=== PATIENT | female | born 1965 | race African-American/Black ===

== ENCOUNTER 2016-11-13 13:35 | Inpatient (IN) | payer OTHER ==
[2016-11-13 15:01] VITALS: BMI 27.3
--- NOTE | 2016-11-13 16:31 | HP ---
Admission ROS [facility] - [facility] Chief Complaint: I WANT TO GO TO REHAB Allergies/Adverse Reactions: Allergies Allergy/AdvReac Type Severity Reaction Status Date / Time Penicillins Allergy Severe Hives Verified 11/13/16 15:59 History of Present Illness: 51 YEARS OLD FEMALE WITH LONG HISTORY OF COCAINE DEPENDENCE HAS POSITIVE PPD, HIV, GERD, HYPERTENSION, ASTHMA IS ADMITTED TO REHAB Exam Limitations: No Limitations - Ebola screening Have you traveled outside of the country in the last 21 days: No Have you had contact with anyone from an Ebola affected area: No Have you been sick,other than usual withdrawal symptoms: No Do you have a fever: No - Review of Systems Constitutional: Weight Stable EENT: reports: Dental Problems (LOWER DENTURE MISSING) Respiratory: reports: No Symptoms reported Cardiac: reports: No Symptoms Reported GI: reports: Indigestion : reports: No Symptoms Reported Musculoskeletal: reports: No Symptoms Reported Integumentary: reports: Lesions (MULTIPLE FACE) Neuro: reports: No Symptoms reported Endocrine: reports: No Symptoms Reported Hematology: reports: No Symptoms Reported Psychiatric: reports: Judgement Intact, Mood/Affect Appropiate, Orientated x3 Other Systems: Reviewed and Negative Patient History - Patient Medical History Hx Anemia: No Hx Asthma: Yes Hx Chronic Obstructive Pulmonary Disease (COPD): Yes Hx Cancer: No Hx Cardiac Disorders: No Hx Congestive Heart Failure: No Hx Hypertension: Yes (pt is on meds.) Hx Hypercholesterolemia: No Hx Pacemaker: No HX Cerebrovascular Accident: No Hx Seizures: No Hx Dementia: No Hx Diabetes: No Hx Gastrointestinal Disorders: Yes Hx Liver Disease: No Hx Genitourinary Disorders: No Hx Sexually Transmitted Disorders: No Hx Renal Disease (ESRD): No Hx Thyroid Disease: No Hx Human Immunodeficiency Virus (HIV): Yes Hx Hepatitis C: Yes Hx Depression: No Hx Suicide Attempt: No (DENIES) Hx Bipolar Disorder: Yes Hx Schizophrenia: No - Patient Surgical History Past Surgical History: Yes Hx Neurologic Surgery: No Hx Cataract Extraction: No Hx Cardiac Surgery: No Hx Lung Surgery: No Hx Breast Surgery: No Hx Breast Biopsy: No Hx Abdominal Surgery: No Hx Appendectomy: No Hx Cholecystectomy: No Hx Genitourinary Surgery: No Hx Section: No Hx Orthopedic Surgery: No Hx Hysterectomy: No Other Surgical History: conization for abnormal pap smear in 2009 in [place] Anesthesia Reaction: No - PPD History Previous Implant?: Yes Documented Results: Positive w/o proof Implanted On Prior [facility] Admission?: No Date: 03/16/16 PPD to be Administered?: No - Reproductive History Patient is a Female of Child Bearing Age (11 -55 yrs old): Yes Last Menstrual Period: 11/13/12 Patient : No - Smoking Cessation Smoking history: Former smoker Have you smoked in the past 12 months: No Cigars Per Day: 0 Hx Chewing Tobacco Use: No Initiated information on smoking cessation: No - Substance & Tx. History Hx Alcohol Use: No Hx Substance Use: Yes Substance Use Type: Cocaine Hx Substance Use Treatment: No - Substances Abused Cocaine Route: Inhalation Frequency: 1-2 times per week Amount used: 20$ Age of first use: 32 Date of Last Use: 11/06/16 Family Disease History - Family Disease History Family Disease History: Heart Disease: Father, Mother Admission Physical Exam [facility] - Vital Signs Vital Signs: Vital Signs - 24 hr 11/13/16 14:59 Temperature 97.9 F Pulse Rate 87 Respiratory 18 Rate Blood Pressure 157/94 - Physical General Appearance: Yes: No Apparent Distress, Nourished, Appropriately Dressed HEENTM: Yes: Hearing grossly Normal, Normocephalic, Normal Voice, Thrush (UPPER LIP), Lessions (RIGHT AND LEFT CORNERS OF MOUTH) Respiratory: Yes: Chest Non-Tender, No Respiratory Distress, No Accessory Muscle Use, Wheezing, Hyperresonant Neck: Yes: Supple, Trachea in good position Breast: Yes: Breasts Symetrical Cardiology: Yes: Regular Rhythm, Regular Rate, S1, S2 Abdominal: Yes: Normal Bowel Sounds, Non Tender, Soft Genitourinary: Yes: Within Normal Limits Back: Yes: Normal Inspection Musculoskeletal: Yes: full range of Motion, Gait Steady Extremities: Yes: Normal Range of Motion, Non-Tender Neurological: Yes: Fully Oriented, Alert, Motor Strength 5/5, Normal Mood/Affect , Normal Response Integumentary: Yes: Warm Lymphatic: Yes: Within Normal Limits - Diagnostic (1) Asthma Current Visit: No Status: Chronic Qualifiers: Asthma severity: moderate persistent Asthma complication type: with status asthmaticus Qualified Code(s): J45.42 - Moderate persistent asthma with status asthmaticus (2) COPD (chronic obstructive pulmonary disease) Current Visit: Yes Status: Chronic Qualifiers: COPD type: emphysema Emphysema type: other Qualified Code(s): J43.8 - Other emphysema (3) Cocaine dependence without complication Current Visit: Yes Status: Acute (4) Essential hypertension Current Visit: Yes Status: Chronic (5) HIV (human immunodeficiency virus infection) Current Visit: Yes Status: Chronic Comment: NEW ANTIVIRUS TRIVICAY DUE TO NONE COMPLIANCE (6) Hepatitis C antibody test positive Current Visit: Yes Status: Resolved (7) GERD (gastroesophageal reflux disease) Current Visit: Yes Status: Chronic Qualifiers: Esophagitis presence: without esophagitis Qualified Code(s): K21.9 - Gastro-esophageal reflux disease without esophagitis (8) Positive PPD, treated Current Visit: Yes Status: Resolved Cleared for Admission [facility] - Detox or Rehab [facility] Level of Care: Observation Bed Detox Regimen/Protocol: Not Applicable Claeared for Rehab Admission: Yes [facility] Breath Alcohol Content Breath Alcohol Content: 0 Urine Pregancy Test - Result Urine Test Results: Negative- NO Line Present Urine Drug Screen - Results Drug Screen Negative: No Urine Drug Screen Results: PRO-Cocaine
[2016-11-13] MEDS ORDERED: ACETAMINOPHEN 325 MG TABLET (FP) PO PRN (16:40)
[2016-11-13] MEDS ORDERED: MAGNESIUM HYDROX 2400MG/30ML ORAL SUSPENSION 30 ML CUP PO PRN (16:40)
[2016-11-13] MEDS ORDERED: MAG HYDROX/AL HYDROX/SIMETH 30 ML UNIT-DOSE CUP PO PRN (16:40)
[2016-11-13] MEDS ORDERED: P-EPHED 60MG/TRIPROLIDI 2.5MG TABLET PO PRN (16:40)
[2016-11-13] MEDS ORDERED: LOPERAMIDE HCL 2 MG CAPSULE PO PRN (16:40)
[2016-11-13] MEDS ORDERED: MAGNESIUM CITRATE 300 ML BOTTLE PO PRN (16:40)
[2016-11-13] MEDS ORDERED: MENTHOL/PHENOL 1 EACH UD MM PRN (16:40)
[2016-11-13] MEDS ORDERED: guaiFENesin/D-METHORPHAN HB 10 ML UNIT-DOSE CUPS PO PRN (16:44)
[2016-11-13] MEDS: BUDESONIDE/FORMETEROL FUMARATE 80/4.5 mcg INHALER IH SCH (21:54)
[2016-11-13] MEDS: amLODIPine BESYLATE 10 MG TABLET (FP) PO SCH (21:54)
[2016-11-13] MEDS: CARVEDILOL 3.125 MG TABLET (FP) PO SCH (21:54)
[2016-11-13] MEDS: RANITIDINE HCL 150 MG TABLET (FP) PO SCH (21:55)
[2016-11-13] MEDS: NYSTATIN/TRIAMCINOLONE TOPICAL CREAM 15 GM TUBE TP SCH ×2 (21:55→22:32)
[2016-11-13] MEDS: CLOTRIMAZOLE 10 MG TROCHE (FP) MM SCH ×2 (21:55→22:32)
[2016-11-13] MEDS: MONTELUKAST NA 10 MG TABLET PO SCH (21:55)
[2016-11-13] MEDS: THIAMINE HCL 100 MG TABLET (FP) PO SCH (21:55)
[2016-11-13] MEDS: diphenhydrAMINE HCL 50 MG CAPSULE PO PRN (21:56)
[2016-11-13] MEDS ORDERED: PT OWN MED DRAWER 7, Y5N ONE (22:37)
[2016-11-13 23:11] LABS: URINE APPEARANCE CLEAR; URINE BILIRUBIN NEGATIVE (NEGATIVE); URINE BLOOD NEGATIVE (NEGATIVE); URINE COLOR STRAW; URINE GLUCOSE (UA) NEGATIVE (NEGATIVE); URINE KETONE NEGATIVE (NEGATIVE); URINE LEUK ESTERASE NEGATIVE (NEGATIVE); URINE NITRITE NEGATIVE (NEGATIVE); URINE PROTEIN NEGATIVE (NEGATIVE); URINE UROBILINOGEN NEGATIVE E.U./dl (0.2-1.0)
[2016-11-14] MEDS: CLOTRIMAZOLE 10 MG TROCHE (FP) MM SCH ×5 (06:19→21:45)
[2016-11-14] MEDS: NYSTATIN/TRIAMCINOLONE TOPICAL CREAM 15 GM TUBE TP SCH ×3 (06:19→21:44)
[2016-11-14] MEDS: ALBUTEROL SO4 6.7 GM HFA INHALER IH PRN ×2 (06:19→10:41)
[2016-11-14] MEDS ORDERED: PT OWN MED DRAWER 7, Y5N ONE ×3 (06:20→22:35)
[2016-11-14 10:06] LABS: MCH 28.8 pg (25.7-33.7); MCHC 33.3 g/dl (32.0-36.0); MEAN CELL VOLUME 86.3 fl (80-96); PLATELET COUNT 246 K/MM3 (134-434); RDW 14.2 % (11.6-15.6); WHITE BLOOD COUNT 4.4 K/mm3 (4.0-10.0)
[2016-11-14 10:20] LABS: ALK PHOS 73 U/L (45-117); ANION GAP 10 (8-16); BILIRUBIN,TOTAL 0.4 mg/dL (0.2-1.0); CALCIUM 8.7 mg/dL (8.5-10.1); CO2 29 mmol/L (21-32); COCKROFT - GAULT 97.4525; CREATININE 0.7 mg/dL (0.55-1.02); GLUCOSE,RANDOM 76 mg/dL (74-106); SGOT/AST 12 U/L (15-37); SGPT/ALT 17 U/L (12-78); TOT PROT 6.8 g/dl (6.4-8.2)
[2016-11-14] MEDS: ASPIRIN 81 MG CHEWABLE TABLETS PO SCH (10:35)
[2016-11-14] MEDS: CARVEDILOL 3.125 MG TABLET (FP) PO SCH (10:35)
[2016-11-14] MEDS: DAPSONE 100 MG TABLET PO SCH (10:35)
[2016-11-14] MEDS: DIVALPROEX SODIUM 250 MG TABLET E.C. (FP) PO SCH ×2 (10:35→21:43)
[2016-11-14] MEDS: amLODIPine BESYLATE 10 MG TABLET (FP) PO SCH (10:36)
[2016-11-14] MEDS: PRENATAL VITAMINS W/ FOLIC ACID TABLET (FP) PO SCH (10:36)
[2016-11-14] MEDS: RANITIDINE HCL 150 MG TABLET (FP) PO SCH ×2 (10:37→21:43)
[2016-11-14] MEDS: BUDESONIDE/FORMETEROL FUMARATE 80/4.5 mcg INHALER IH SCH ×2 (10:37→21:44)
[2016-11-14] MEDS: ALBUTEROL SO4 2.5/IPRATROPIUM 0.5 INH SOL 3 ML VIAL.NEB. NEB PRN (12:49)
[2016-11-14] MEDS ORDERED: FLUCONAZOLE 100 MG TABLET (UD) PO ONE (14:23)
[2016-11-14] MEDS: LIDOCAINE 5% TOPICAL PATCH TP SCH (14:43)
[2016-11-14] MEDS: POTASSIUM CHLORIDE TABS 20 MEQ TABLET.ER (FP) PO SCH ×2 (14:44→21:43)
[2016-11-14] MEDS: SULFAMETHOXAZOLE/TRIMETHOPRIM 800MG/160MG D.S. TABLET PO SCH (15:39)
[2016-11-14] MEDS: EMTRICITABINE 200MG/TENOFOVIR 300MG PO SCH (15:51)
--- NOTE | 2016-11-14 16:36 | EKG ---
Test Reason : Blood Pressure : / mmHG Vent. Rate : 085 BPM Atrial Rate : 085 BPM P-R Int : 146 ms QRS Dur : 086 ms QT Int : 408 ms P-R-T Axes : 065 046 032 degrees QTc Int : 485 ms NORMAL SINUS RHYTHM POSSIBLE LEFT ATRIAL ENLARGEMENT SEPTAL INFARCT (CITED ON OR BEFORE 03-FEB-2015) ABNORMAL ECG WHEN COMPARED WITH ECG OF 03-FEB-2015 15:48, NO SIGNIFICANT CHANGE WAS FOUND Confirmed by LULU DAVIS, EVA ([id number]) on 11/14/2016 4:36:41 PM Referred By: Suzanne Kramer Confirmed By:EVA LAWSON MD
[2016-11-14] MEDS: MONTELUKAST NA 10 MG TABLET PO SCH (21:43)
[2016-11-14] MEDS: THIAMINE HCL 100 MG TABLET (FP) PO SCH (21:43)
[2016-11-14] MEDS: QUEtiapine FUMARATE 100 MG TABLET (FP) PO SCH (21:45)
[2016-11-14] MEDS: LIDOCAINE PATCH REMOVAL MC SCH (21:46)
[2016-11-14] MEDS: RALTEGRAVIR POTASSIUM 400 MG TAB PO SCH (21:47)
[2016-11-15] MEDS: ALBUTEROL SO4 2.5/IPRATROPIUM 0.5 INH SOL 3 ML VIAL.NEB. NEB PRN ×2 (06:18→13:25)
[2016-11-15] MEDS ORDERED: PT OWN MED DRAWER 7, Y5N ONE ×3 (06:23→14:37)
[2016-11-15] MEDS: NYSTATIN/TRIAMCINOLONE TOPICAL CREAM 15 GM TUBE TP SCH ×3 (06:29→21:55)
[2016-11-15] MEDS: CLOTRIMAZOLE 10 MG TROCHE (FP) MM SCH ×5 (06:30→21:55)
--- NOTE | 2016-11-15 09:57 | HP ---
Psychiatrist Admission - Data Date of interview: 11/15/16 Admission source: [address] [place] [address] Identifying data: This is the second admission to [address] [place] [address] this 51 years old AA female single ,domiciled,supported by [employer]. Medical History: BA,COPD,HIV+,LOw back pain. Psychiatric History: Long and extensive psychiatric history.Patient wass dx with Bipolar disorder since 1992.Denies psychiatric hospitalizations,no previous suicidal attempts. Patient reports noncompliant with medications.Follow up by psychiatrist at [facility] :Depakote 250 mg po bid and Seroquel 100 mg po hs. Physical/Sexual Abuse/Trauma History: denies Vital Signs: Vital Signs - 24 hr 11/15/16 11/15/16 11/15/16 00:30 03:30 07:28 Temperature 98.1 F Pulse Rate 99 H Respiratory 18 18 18 Rate Blood Pressure 119/83 11/15/16 09:50 Temperature Pulse Rate 94 H Respiratory Rate Blood Pressure 126/81 Allergies/Adverse Reactions: Allergies Allergy/AdvReac Type Severity Reaction Status Date / Time Penicillins Allergy Severe Hives Verified 11/13/16 15:59 Date of last physical exam: 11/13/16 Concur with the findings of this exam: Yes - Substance Abuse/Tx History Hx Alcohol Use: Yes (reports drinking since 20 yo,fifth of vodka daily) Hx Substance Use: Yes (crack/coaine since 20 yo ,$300 daily) Substance Use Type: Alcohol, Cocaine Hx Substance Use Treatment: Yes (completed this program in 2016) - Admission Criteria Previous failed treatment: Yes Poor recovery environment: Yes Comorbidities: Yes Lacks judgement: Yes Mental Status Exam - Mental Status Exam Alert and Oriented to: Time, Place, Person Cognitive Function: Grossly Intact Patient Appearance: Well Groomed Mood: Anxious Affect: Labile Patient Behavior: Cooperative Speech Pattern: Clear Voice Loudness: Normal Thought Process: Goal Oriented Thought Disorder: Not Present Hallucinations: Denies Suicidal Ideation: Denies Homicidal Ideation: Denies Insight/Judgement: Fair Sleep: Fair Appetite: Good Muscle strength/Tone: Normal Gait/Station: Normal Psychiatric Findings - Problem List ([place] 1, 2,3) (1) Cocaine dependence without complication Current Visit: Yes Status: Chronic (2) COPD (chronic obstructive pulmonary disease) Current Visit: Yes Status: Chronic Qualifiers: COPD type: emphysema Emphysema type: other Qualified Code(s): J43.8 - Other emphysema (3) Essential hypertension Current Visit: Yes Status: Chronic (4) GERD (gastroesophageal reflux disease) Current Visit: Yes Status: Chronic Qualifiers: Esophagitis presence: without esophagitis Qualified Code(s): K21.9 - Gastro-esophageal reflux disease without esophagitis (5) HIV (human immunodeficiency virus infection) Current Visit: Yes Status: Chronic Comment: NEW ANTIVIRUS TRIVICAY DUE TO NONE COMPLIANCE (6) Hepatitis C antibody test positive Current Visit: Yes Status: Resolved (7) Hypertension Current Visit: Yes Status: Chronic (8) Asthma Current Visit: Yes Status: Chronic Qualifiers: Asthma severity: moderate persistent Asthma complication type: with status asthmaticus Qualified Code(s): J45.42 - Moderate persistent asthma with status asthmaticus - Initial Treatment Plan Initial Treatment Plan: Continue current medications as per plan.Will monitor progress.
[2016-11-15] MEDS: PRENATAL VITAMINS W/ FOLIC ACID TABLET (FP) PO SCH (10:40)
[2016-11-15] MEDS: CARVEDILOL 3.125 MG TABLET (FP) PO SCH (10:41)
[2016-11-15] MEDS: SULFAMETHOXAZOLE/TRIMETHOPRIM 800MG/160MG D.S. TABLET PO SCH (10:41)
[2016-11-15] MEDS: DAPSONE 100 MG TABLET PO SCH (10:41)
[2016-11-15] MEDS: ASPIRIN 81 MG CHEWABLE TABLETS PO SCH (10:41)
[2016-11-15] MEDS: FLUCONAZOLE 100 MG TABLET (UD) PO SCH (10:42)
[2016-11-15] MEDS: DIVALPROEX SODIUM 250 MG TABLET E.C. (FP) PO SCH ×2 (10:42→21:52)
[2016-11-15] MEDS: BUDESONIDE/FORMETEROL FUMARATE 80/4.5 mcg INHALER IH SCH ×2 (10:42→21:52)
[2016-11-15] MEDS: POTASSIUM CHLORIDE TABS 20 MEQ TABLET.ER (FP) PO SCH ×2 (10:42→21:52)
[2016-11-15] MEDS: amLODIPine BESYLATE 10 MG TABLET (FP) PO SCH (10:42)
[2016-11-15] MEDS: LIDOCAINE 5% TOPICAL PATCH TP SCH (10:42)
[2016-11-15] MEDS: RANITIDINE HCL 150 MG TABLET (FP) PO SCH ×2 (10:43→21:52)
[2016-11-15] MEDS: RALTEGRAVIR POTASSIUM 400 MG TAB PO SCH (10:44)
[2016-11-15] MEDS: RITONAVIR 100 MG TABLET PO SCH ×2 (10:47→14:19)
[2016-11-15] MEDS: EMTRICITABINE 200MG/TENOFOVIR 300MG PO SCH ×2 (10:47→14:19)
[2016-11-15] MEDS: ALBUTEROL SO4 6.7 GM HFA INHALER IH PRN ×3 (10:48→22:10)
[2016-11-15] MEDS: hydrOXYzine PAMOATE 50 MG CAPSULE (FP) PO PRN (13:27)
[2016-11-15] MEDS ORDERED: LIDOCAINE VISCOUS 2% ORAL/TOP 20 ML UNIT-DOSE CUP MM PRN (13:40)
[2016-11-15] MEDS: DARUNAVIR ETHANOLATE 800 MG TAB PO SCH (14:19)
[2016-11-15] MEDS: QUEtiapine FUMARATE 100 MG TABLET (FP) PO SCH (21:52)
[2016-11-15] MEDS: THIAMINE HCL 100 MG TABLET (FP) PO SCH (21:52)
[2016-11-15] MEDS: MONTELUKAST NA 10 MG TABLET PO SCH (21:52)
[2016-11-15] MEDS: LIDOCAINE PATCH REMOVAL MC SCH (21:53)
[2016-11-15] MEDS: diphenhydrAMINE HCL 50 MG CAPSULE PO PRN (21:58)
[2016-11-16] MEDS: NYSTATIN/TRIAMCINOLONE TOPICAL CREAM 15 GM TUBE TP SCH ×3 (06:29→22:04)
[2016-11-16] MEDS: CLOTRIMAZOLE 10 MG TROCHE (FP) MM SCH ×5 (06:30→22:07)
[2016-11-16] MEDS ORDERED: PT OWN MED DRAWER 7, Y5N ONE ×3 (06:30→20:41)
[2016-11-16] MEDS: ALBUTEROL SO4 6.7 GM HFA INHALER IH PRN (06:31)
[2016-11-16] MEDS: SULFAMETHOXAZOLE/TRIMETHOPRIM 800MG/160MG D.S. TABLET PO SCH (09:15)
[2016-11-16] MEDS: ASPIRIN 81 MG CHEWABLE TABLETS PO SCH (09:15)
[2016-11-16] MEDS: DIVALPROEX SODIUM 250 MG TABLET E.C. (FP) PO SCH ×2 (09:16→22:05)
[2016-11-16] MEDS: CARVEDILOL 3.125 MG TABLET (FP) PO SCH (09:16)
[2016-11-16] MEDS: DAPSONE 100 MG TABLET PO SCH (09:16)
[2016-11-16] MEDS: FLUCONAZOLE 100 MG TABLET (UD) PO SCH (09:17)
[2016-11-16] MEDS: POTASSIUM CHLORIDE TABS 20 MEQ TABLET.ER (FP) PO SCH ×2 (09:17→22:05)
[2016-11-16] MEDS: LIDOCAINE 5% TOPICAL PATCH TP SCH (09:17)
[2016-11-16] MEDS: amLODIPine BESYLATE 10 MG TABLET (FP) PO SCH (09:18)
[2016-11-16] MEDS: RITONAVIR 100 MG TABLET PO SCH (09:19)
[2016-11-16] MEDS: PRENATAL VITAMINS W/ FOLIC ACID TABLET (FP) PO SCH (09:19)
[2016-11-16] MEDS: BUDESONIDE/FORMETEROL FUMARATE 80/4.5 mcg INHALER IH SCH ×2 (09:19→22:04)
[2016-11-16] MEDS: DARUNAVIR ETHANOLATE 800 MG TAB PO SCH (09:19)
[2016-11-16] MEDS: EMTRICITABINE 200MG/TENOFOVIR 300MG PO SCH (09:20)
[2016-11-16] MEDS: RANITIDINE HCL 150 MG TABLET (FP) PO SCH ×2 (09:20→22:05)
[2016-11-16] MEDS: ALBUTEROL SO4 2.5/IPRATROPIUM 0.5 INH SOL 3 ML VIAL.NEB. NEB PRN ×2 (09:20→16:56)
[2016-11-16] MEDS: hydrOXYzine PAMOATE 50 MG CAPSULE (FP) PO PRN ×2 (10:33→17:04)
[2016-11-16] MEDS: MONTELUKAST NA 10 MG TABLET PO SCH (22:05)
[2016-11-16] MEDS: QUEtiapine FUMARATE 100 MG TABLET (FP) PO SCH (22:05)
[2016-11-16] MEDS: THIAMINE HCL 100 MG TABLET (FP) PO SCH (22:05)
[2016-11-16] MEDS: diphenhydrAMINE HCL 50 MG CAPSULE PO PRN (22:06)
[2016-11-16] MEDS: LIDOCAINE PATCH REMOVAL MC SCH (22:07)
[2016-11-17] MEDS: CLOTRIMAZOLE 10 MG TROCHE (FP) MM SCH ×5 (06:31→21:50)
[2016-11-17] MEDS: NYSTATIN/TRIAMCINOLONE TOPICAL CREAM 15 GM TUBE TP SCH ×3 (06:31→21:48)
[2016-11-17] MEDS: ALBUTEROL SO4 6.7 GM HFA INHALER IH PRN ×2 (08:46→18:28)
[2016-11-17] MEDS: SULFAMETHOXAZOLE/TRIMETHOPRIM 800MG/160MG D.S. TABLET PO SCH (10:14)
[2016-11-17] MEDS: ASPIRIN 81 MG CHEWABLE TABLETS PO SCH (10:14)
[2016-11-17] MEDS: CARVEDILOL 3.125 MG TABLET (FP) PO SCH (10:14)
[2016-11-17] MEDS: DIVALPROEX SODIUM 250 MG TABLET E.C. (FP) PO SCH ×2 (10:15→21:48)
[2016-11-17] MEDS: DAPSONE 100 MG TABLET PO SCH (10:15)
[2016-11-17] MEDS: LIDOCAINE 5% TOPICAL PATCH TP SCH (10:16)
[2016-11-17] MEDS: POTASSIUM CHLORIDE TABS 20 MEQ TABLET.ER (FP) PO SCH ×2 (10:16→21:48)
[2016-11-17] MEDS: FLUCONAZOLE 100 MG TABLET (UD) PO SCH (10:16)
[2016-11-17] MEDS: amLODIPine BESYLATE 10 MG TABLET (FP) PO SCH (10:18)
[2016-11-17] MEDS: RITONAVIR 100 MG TABLET PO SCH (10:18)
[2016-11-17] MEDS: EMTRICITABINE 200MG/TENOFOVIR 300MG PO SCH (10:18)
[2016-11-17] MEDS: BUDESONIDE/FORMETEROL FUMARATE 80/4.5 mcg INHALER IH SCH ×2 (10:19→21:47)
[2016-11-17] MEDS: RANITIDINE HCL 150 MG TABLET (FP) PO SCH ×2 (10:19→21:49)
[2016-11-17] MEDS: DARUNAVIR ETHANOLATE 800 MG TAB PO SCH (10:19)
[2016-11-17] MEDS: PRENATAL VITAMINS W/ FOLIC ACID TABLET (FP) PO SCH (10:19)
[2016-11-17] MEDS: ALBUTEROL SO4 2.5/IPRATROPIUM 0.5 INH SOL 3 ML VIAL.NEB. NEB PRN (13:11)
[2016-11-17] MEDS: hydrOXYzine PAMOATE 50 MG CAPSULE (FP) PO PRN ×2 (13:11→18:27)
[2016-11-17] MEDS ORDERED: PT OWN MED DRAWER 7, Y5N ONE (18:27)
[2016-11-17] MEDS: diphenhydrAMINE HCL 50 MG CAPSULE PO PRN (21:48)
[2016-11-17] MEDS: THIAMINE HCL 100 MG TABLET (FP) PO SCH (21:49)
[2016-11-17] MEDS: MONTELUKAST NA 10 MG TABLET PO SCH (21:49)
[2016-11-17] MEDS: QUEtiapine FUMARATE 100 MG TABLET (FP) PO SCH (21:49)
[2016-11-17] MEDS: LIDOCAINE PATCH REMOVAL MC SCH (21:51)
[2016-11-18] MEDS ORDERED: PT OWN MED DRAWER 7, Y5N ONE ×2 (03:27→12:16)
[2016-11-18] MEDS: ALBUTEROL SO4 2.5/IPRATROPIUM 0.5 INH SOL 3 ML VIAL.NEB. NEB PRN (06:25)
[2016-11-18] MEDS: NYSTATIN/TRIAMCINOLONE TOPICAL CREAM 15 GM TUBE TP SCH ×3 (06:43→22:06)
[2016-11-18] MEDS: CLOTRIMAZOLE 10 MG TROCHE (FP) MM SCH ×5 (06:43→22:06)
[2016-11-18 07:07] VITALS: TEMP 97.5
[2016-11-18 10:01] VITALS: BP 116/76; PULSE 101
[2016-11-18] MEDS: RANITIDINE HCL 150 MG TABLET (FP) PO SCH ×2 (11:00→22:07)
[2016-11-18] MEDS: DARUNAVIR ETHANOLATE 800 MG TAB PO SCH (11:20)
[2016-11-18] MEDS: amLODIPine BESYLATE 10 MG TABLET (FP) PO SCH (11:20)
[2016-11-18] MEDS: PRENATAL VITAMINS W/ FOLIC ACID TABLET (FP) PO SCH (11:20)
[2016-11-18] MEDS: ASPIRIN 81 MG CHEWABLE TABLETS PO SCH (11:20)
[2016-11-18] MEDS: SULFAMETHOXAZOLE/TRIMETHOPRIM 800MG/160MG D.S. TABLET PO SCH (11:21)
[2016-11-18] MEDS: CARVEDILOL 3.125 MG TABLET (FP) PO SCH (11:21)
[2016-11-18] MEDS: DAPSONE 100 MG TABLET PO SCH (11:22)
[2016-11-18] MEDS: POTASSIUM CHLORIDE TABS 20 MEQ TABLET.ER (FP) PO SCH ×3 (11:23→22:06)
[2016-11-18] MEDS: EMTRICITABINE 200MG/TENOFOVIR 300MG PO SCH (11:24)
[2016-11-18] MEDS: RITONAVIR 100 MG TABLET PO SCH (11:24)
[2016-11-18] MEDS: BUDESONIDE/FORMETEROL FUMARATE 80/4.5 mcg INHALER IH SCH ×2 (11:25→22:07)
[2016-11-18] MEDS: DIVALPROEX SODIUM 250 MG TABLET E.C. (FP) PO SCH ×2 (11:27→22:05)
[2016-11-18] MEDS: FLUCONAZOLE 100 MG TABLET (UD) PO SCH (11:53)
[2016-11-18] MEDS: LIDOCAINE 5% TOPICAL PATCH TP SCH (11:53)
[2016-11-18] MEDS: ALBUTEROL SO4 6.7 GM HFA INHALER IH PRN (12:57)
[2016-11-18] MEDS ORDERED: ALBUTEROL SO4 2.5/IPRATROPIUM 0.5 INH SOL 3 ML VIAL.NEB. NEB PRN (13:56)
[2016-11-18] MEDS ORDERED: LEVOFLOXACIN 500 MG TABLET (FP) PO SCH (14:00)
--- NOTE | 2016-11-18 14:07 | PN ---
[facility] Progress Note Note: C/O sob & wheezing Last Vital Signs Temp Pulse Resp BP Pulse Ox 97.5 F L 101 H 18 116/76 11/18/16 07:06 11/18/16 10:00 11/18/16 07:06 11/18/16 10:00 Lungs : B/L expiratory wheezing, O2 sat 99% Dx. : Acute Asthma attack R/O superimposed Bronchitis P : Prednisone 60mg PO stat Duoned via nebulizer Levaquin 500mg daily
[2016-11-18] MEDS ORDERED: predniSONE 20 MG TABLET (UD) PO SCH (14:27)
[2016-11-18] MEDS: hydrOXYzine PAMOATE 50 MG CAPSULE (FP) PO PRN (15:13)
--- NOTE | 2016-11-18 18:15 | PN ---
S Progress Note Note: NURSE CALLED FOR PT C/O RESPIRATORY DISTRESS/SOB. HX OF ASTHMA/COPD AND INTUBATION X 3. PT REFUSED RESPIRATORY TX HERE PER NURSE STATING " I NEED TO GO TO THE ER NOW BECAUSE I KNOW MYSELF". WEK AND DIFFICULTY STANDING FROM SITTING POSITION. PT IS ABLE TO VERBALLY COMMUNICATE WITHOUT DIFFICULTY. NO LOC. LUNGS:DIMINISHED BREATH SOUNDS/ AIR MOVEMENT; TIGHT. PULSE OX 93% AND IMPROVED TO 97% T 97.5 P111 RR 22 BP 122/88 PLAN: TRANSFER PT VIA [facility] TO ER FOR RESPIRATORY MANAGEMENT.
[2016-11-18] MEDS ORDERED: SULFAMETHOXAZOLE/TRIMETHOPRIM 800MG/160MG D.S. TABLET PO SCH (22:00)
[2016-11-18] MEDS ORDERED: CYCLOBENZAPRINE HCL 10 MG TABLET (FP) PO SCH (22:00)
[2016-11-18] MEDS: ALBUTEROL SO4 2.5/IPRATROPIUM 0.5 INH SOL 3 ML VIAL.NEB. NEB SCH ×2 (22:04→22:05)
[2016-11-18] MEDS: LIDOCAINE PATCH REMOVAL MC SCH (22:06)
[2016-11-18] MEDS: QUEtiapine FUMARATE 100 MG TABLET (FP) PO SCH (22:07)
[2016-11-18] MEDS: THIAMINE HCL 100 MG TABLET (FP) PO SCH (22:07)
[2016-11-18] MEDS: MONTELUKAST NA 10 MG TABLET PO SCH (22:07)
== END 2016-11-19 06:00 | disposition short-term general hospital (02) | DRG 772 ==
LOC: YASAS 13:35 → Y3E 17:21
PROVIDERS: ADMIT Psychiatry & Neurology Psychiatry; ATTEND Psychiatry & Neurology Psychiatry
PROC: HZ42ZZZ Group Counseling for Substance Abuse Treatment, Cognitive-Behavioral (ICD-10-PCS; principal; 2016-11-19)
DX: F14.20 Cocaine dependence, uncomplicated (principal); I10 Essential (primary) hypertension; J45.20 Mild intermittent asthma, uncomplicated; J43.8 Other emphysema; K21.9 Gastro-esophageal reflux disease without esophagitis; R76.11 Nonspecific reaction to tuberculin skin test without active tuberculosis
CPT/HCPCS: 36415; 80053; 81003; 85027; 86593; 93005; 93010; 94640

== ENCOUNTER 2016-11-18 18:24 | Inpatient (IN) | payer OTHER ==
[2016-11-18] MEDS ORDERED: ALBUTEROL SO4 0.083% IH SOL 2.5 MG/3 ML VIAL.NEB. NEB ONE ×4 (18:39→23:50)
[2016-11-18] MEDS ORDERED: IPRATROPIUM BR 0.02% 0.5 MG/2.5 ML VIAL.NEB. NEB ONE (18:40)
[2016-11-18] MEDS ORDERED: ALBUTEROL SO4 2.5/IPRATROPIUM 0.5 INH SOL 3 ML VIAL.NEB. NEB ONE (18:45)
[2016-11-18] MEDS ORDERED: MAGNESIUM SULF 50% (8.12 MEQ/2 ML-1 GM VIAL) ONE ×2 (19:22→20:01)
[2016-11-18] MEDS ORDERED: methylPREDNISolone NA SUCC 125 MG/2 ML VIAL IVPB ONE (19:22)
[2016-11-18] MEDS ORDERED: methylPREDNISolone NA SUCC 125 MG/2 ML VIAL ONE (19:22)
[2016-11-18] MEDS ORDERED: MAGNESIUM SULF 50% (8.12 MEQ/2 ML-1 GM VIAL) IVPB ONE (19:22)
[2016-11-18] MEDS: ALBUTEROL SO4 0.083% IH SOL 2.5 MG/3 ML VIAL.NEB. NEB SCH ×4 (19:30→20:15)
[2016-11-18 20:16] LABS: MCHC 32.2 g/dl (32.0-36.0); MEAN CELL VOLUME 87.2 fl (80-96); MEAN PLT VOLUME 9.9 fl (7.5-11.1); PLATELET COUNT 171 K/MM3 (134-434); WHITE BLOOD COUNT 4.4 K/mm3 (4.0-10.0)
[2016-11-18 20:31] LABS: URINE APPEARANCE CLEAR; URINE BILIRUBIN NEGATIVE (NEGATIVE); URINE BLOOD NEGATIVE (NEGATIVE); URINE COLOR STRAW; URINE GLUCOSE (UA) NEGATIVE (NEGATIVE); URINE KETONE NEGATIVE (NEGATIVE); URINE LEUK ESTERASE NEGATIVE (NEGATIVE); URINE NITRITE NEGATIVE (NEGATIVE); URINE PROTEIN NEGATIVE (NEGATIVE); URINE UROBILINOGEN NEGATIVE E.U./dl (0.2-1.0)
[2016-11-18 21:04] LABS: ARTERIAL BLD GAS O2 SATURATION 98.6 % (90-98.9); ARTERIAL BLOOD GAS BASE EXCESS -0.8 meq/l (-2-2); ARTERIAL BLOOD GAS HCO3 22.1 meq/L (22-26)
[2016-11-18 21:09] LABS: ALLENS TEST POSITIVE; ART PUNCT SITE RIGHT RADIAL; PT. ON O2? YES
--- NOTE | 2016-11-18 21:09 | PDOC ---
*Physical Exam - Vital Signs Last Vital Signs Temp Pulse Resp BP Pulse Ox 98.6 F 97 H 18 116/87 98 11/18/16 18:36 11/18/16 18:36 11/18/16 18:36 11/18/16 18:36 11/18/16 18:36 ED Treatment Course - LABORATORY CBC & Chemistry Diagram: 11/19/16 07:45 11/18/16 20:46 - ADDITIONAL ORDERS Additional order review: Laboratory Results 11/18/16 11/18/16 20:13 19:40 Sodium Cancelled Potassium Cancelled Chloride Cancelled Carbon Dioxide Cancelled Anion Gap Cancelled BUN Cancelled Creatinine Cancelled Creat Clearance w eGFR Cancelled Random Glucose Cancelled Calcium Cancelled Total Bilirubin Cancelled AST Cancelled ALT Cancelled Alkaline Phosphatase Cancelled Creatine Kinase Cancelled Troponin I Cancelled Total Protein Cancelled Albumin Cancelled Urine Color Straw Urine Appearance Clear Urine pH 8.0 Urine Protein Negative Urine Glucose (UA) Negative Urine Ketones Negative Urine Blood Negative Urine Nitrite Negative Urine Bilirubin Negative Urine Urobilinogen Negative Ur Leukocyte Esterase Negative - Medications Given in the ED: ED Medications Discontinued Medications Generic Name Dose Route Start Last Admin Trade Name Syeda PRN Reason Stop Dose Admin Magnesium Sulfate 2 gm 11/18/16 19:22 11/18/16 19:22 Magnesium Sulfate IVPB 11/18/16 19:23 2 gm ONCE ONE Administration Methylprednisolone Sodium Succinate 125 mg 11/18/16 19:22 11/18/16 19:22 Solu-Medrol - IVPB 11/18/16 19:23 125 mg ONCE ONE Administration Medical Decision Making - Medical Decision Making 11/18/16 21:09 Pt seen by the Advanced Practice Provider under my direct supervision Ancillary studies reviewed I agree with plan as outlined by the Advanced Practice Provider DUNCAN Pink *DC/Admit/Observation/Transfer Diagnosis at time of Disposition: Pneumonia, Hypoxia, HIV (human immunodeficiency virus infection) - Discharge Dispostion Disposition: HOME Condition at time of disposition: Improved - Prescriptions
[2016-11-18 21:10] LABS: LPM/O2% 2; TYPE OF O2 NASAL CANNULA
[2016-11-18 21:11] LABS: METHEMOGLOBIN 3.6 % (0.4-1.5)
[2016-11-18 21:12] LABS: ARTERIAL BLOOD GAS pH 7.45 (7.35-7.45)
[2016-11-18 21:40] LABS: ALBUMIN 3.3 g/dl (3.4-5.0); ANION GAP 11 (8-16); BILIRUBIN,TOTAL 0.3 mg/dL (0.2-1.0); CO2 24 mmol/L (21-32); COCKROFT - GAULT 75.7945; CREATININE 0.9 mg/dL (0.55-1.02); GLUCOSE,RANDOM 120 mg/dL (74-106); SGOT/AST 13 U/L (15-37); SGPT/ALT 18 U/L (12-78); TOT PROT 7.6 g/dl (6.4-8.2)
[2016-11-18 21:43] LABS: ALK PHOS 82 U/L (45-117); TROPONIN I < 0.02 ng/ml (0.00-0.05)
[2016-11-18 22:02] LABS: METAMYELOCYTE 4 % (0-2); PLATELET ESTIMATE ADEQUATE (NORMAL)
--- NOTE | 2016-11-18 22:06 | PDOC ---
History of Present Illness - General Chief Complaint: Asthma Stated Complaint: ASTHMA Time Seen by Provider: 11/18/16 19:11 History Source: Patient Exam Limitations: No Limitations - History of Present Illness Initial Comments: 11/18/16 22:01 51yo Female patient w/ PmHx: HIV+, COPD, Asthma, Respiratory failure w/ intubation x3 presents to ED via EMS c/o diff breathing. Patient states her symptoms began 2 days ago and progressively got worse. She states she recently moved from [facility], [place], but prior to moving had been dx: Pneumonia. rx: Levaquin x 3 days w/ prednisone. She states she was at [address] [place] [address] and transferred to this ED for evaluation. PCP- Out of Area. Timing/Duration: reports: getting worse, week Severity: reports: severe Possible Cause: Yes: other (Recent Illness) Modifying Factors: improves with: albuterol inhaler, albuterol nebulizer, antibiotics, rest Associated Symptoms: reports: shortness of breath, wheezing Past History - Travel Traveled outside of the country in the last 30 days: No Close contact w/someone who was outside of country & ill: No - Past Medical History Allergies/Adverse Reactions: Allergies Allergy/AdvReac Type Severity Reaction Status Date / Time Penicillins Allergy Severe Hives Verified 11/18/16 18:41 Home Medications: Ambulatory Orders Albuterol Sulfate Inhaler - [Ventolin HFA Inhaler -] 2 inh PO Q4H 02/01/15 Zolpidem Tartrate [Ambien] 10 mg PO HS 02/01/15 Fluticasone/Salmeterol [Advair 250-50 Diskus] 1 each IH BID 10/02/15 Amlodipine Besylate [Norvasc -] 10 mg PO DAILY #30 tablet 10/06/15 Aspirin [Viking Aspirin] 81 mg PO DAILY #30 tab.chew 10/06/15 Carvedilol [Coreg -] 3.125 mg PO DAILY #30 tablet 10/06/15 Lisinopril [Prinivil] 20 mg PO DAILY #30 tablet 10/06/15 Dapsone - 100 mg PO DAILY 11/13/16 Divalproex Sodium [Depakote] 250 mg PO BID 11/13/16 Dolutegravir Sodium [Tivicay] 50 mg PO DAILY 11/13/16 Guaifenesin [Liquituss GG] 200 mg PO Q6H PRN 11/13/16 Montelukast Na [Singulair -] 10 mg PO DAILY 11/13/16 Multivitamin [Poly-Vitamin] 1 each PO DAILY 11/13/16 Nystatin/Triamcin [Nystatin-Triamcinolone Cream] 15 gm TP TID 11/13/16 Omeprazole 20 mg PO DAILY 11/13/16 Oxycodone HCl/Acetaminophen [Oxycodone-Acetaminophen 10-325] 1 each PO BID 11/13 Quetiapine Fumarate [Seroquel] 100 mg PO HS 11/13/16 Tiotropium [place] [Spiriva Respimat] 2.5 mcg IH DAILY 11/13/16 Anemia: No Asthma: Yes (intubated 3X) Cancer: No Cardiac Disorders: No CVA: No COPD: No CHF: No Dementia: No Diabetes: No GI Disorders: No Disorders: No HTN: Yes Hypercholesterolemia: No Kidney Stones: No Liver Disease: No Suicide Attempt (Hx): No Seizures: No Thyroid Disease: No - Surgical History Abdominal Surgery: No Appendectomy: No Cardiac Surgery: No Cholecystectomy: No Lung Surgery: No Neurologic Surgery: No Orthopedic Surgery: No - Reproductive History PID: No - Immunization History Immunization Up to Date: Yes - Psycho/Social/Smoking Cessation Hx Anxiety: No Suicidal Ideation: No Smoking History: Unknown if ever smoked Have you smoked in the past 12 months: No Number of Cigarettes Smoked Daily: 3 Cigars Per Day: 0 Information on smoking cessation initiated: No 'Breaking Loose' booklet given: 04/03/16 Hx Alcohol Use: Yes Drug/Substance Use Hx: Yes (cocaine) Substance Use Type: Alcohol, Cocaine Hx Substance Use Treatment: Yes (completed this program in 2016) Respiratory Specific PMHX - Complaint Specific PMHX TB (Tuberculosis): Yes (+PPD) Review of Systems - Review of Systems Able to Perform ROS?: Yes Is the patient limited [place] proficient: No Constitutional: Yes: Chills. No: Fever, Night Sweats HEENTM: No: Nose Congestion, Nose Bleeding, Throat Pain Respiratory: Yes: Cough, Orthopnea, Shortness of Breath, Wheezing, Productive cough. No: Hemoptysis Cardiac (ROS): No: Chest Pain, Lightheadedness, Palpitations, Syncope, Chest Tightness ABD/GI: No: Constipated, Diarrhea, Nausea, Poor Appetite, Poor Fluid Intake, Vomiting, Abdominal cramping : No: Burning, Dysuria, Flank Pain Musculoskeletal: Yes: Back Pain (Chronic) Integumentary: No: Bruising, Rash All Other Systems: Reviewed and Negative *Physical Exam - Vital Signs Last Vital Signs Temp Pulse Resp BP Pulse Ox 98.6 F 97 H 18 116/87 98 11/18/16 18:36 11/18/16 18:36 11/18/16 18:36 11/18/16 18:36 11/18/16 18:36 - Physical Exam General Appearance: Yes: Nourished, Appropriately Dressed, Apparent Distress, Severe Distress. No: Mild Distress, Moderate Distress Neck: positive: Trachea midline, Supple. negative: Stridor, Lymphadenopathy (R) , Lymphadenopathy (L) Respiratory/Chest: positive: Labored Respiration, Decreased Breath Sounds, Wheezing Cardiovascular: positive: Regular Rhythm, Regular Rate Gastrointestinal/Abdominal: positive: Normal Bowel Sounds, Soft. negative: Distended, Guarding, Rebound, Tenderness Musculoskeletal: positive: Normal Inspection. negative: CVA Tenderness Extremity: positive: Normal Capillary Refill, Normal Inspection, Normal Range of Motion. negative: Pedal Edema, Swelling, Calf Tenderness, Erythema, Inflammation Integumentary: positive: Normal Color, Dry, Warm. negative: Erythema, Clammy, Diaphoresis, Hives, Petechiae, Swelling Neurologic: positive: traffic reporter II-XII NML intact, Fully Oriented, Alert, Normal Mood/ Affect, Normal Response, Motor Strength 5/5 ED Treatment Course - LABORATORY CBC & Chemistry Diagram: 11/18/16 19:40 11/18/16 20:46 - ADDITIONAL ORDERS Additional order review: Laboratory Results 11/18/16 11/18/16 11/18/16 21:00 20:46 20:13 Puncture Site Right radial ABG pH 7.45 ABG pCO2 at Pt Temp 32.3 L ABG pO2 at Pt Temp 120.0 H D ABG HCO3 22.1 ABG O2 Sat (Measured) 98.6 ABG O2 Content 14.4 L ABG Base Excess -0.8 [place]lin Test Positive Carboxyhemoglobin 1.2 Methemoglobin 3.6 H O2 Delivery Device Nasal cannula Oxygen Flow Rate 2 Mechanical Rate Na PEEP 0.0 Sodium 142 Potassium 4.6 D Chloride 107 Carbon Dioxide 24 Anion Gap 11 BUN 18 D Creatinine 0.9 D Creat Clearance w eGFR > 60 Random Glucose 120 H D Calcium 9.0 Total Bilirubin 0.3 D AST 13 L ALT 18 Alkaline Phosphatase 82 Creatine Kinase 48 Troponin I < 0.02 Total Protein 7.6 Albumin 3.3 L Urine Color Straw Urine Appearance Clear Urine pH 8.0 Urine Protein Negative Urine Glucose (UA) Negative Urine Ketones Negative Urine Blood Negative Urine Nitrite Negative Urine Bilirubin Negative Urine Urobilinogen Negative Ur Leukocyte Esterase Negative 11/18/16 19:40 Puncture Site ABG pH ABG pCO2 at Pt Temp ABG pO2 at Pt Temp ABG HCO3 ABG O2 Sat (Measured) ABG O2 Content ABG Base Excess Collin Test Carboxyhemoglobin Methemoglobin O2 Delivery Device Oxygen Flow Rate Mechanical Rate PEEP Sodium Cancelled Potassium Cancelled Chloride Cancelled Carbon Dioxide Cancelled Anion Gap Cancelled BUN Cancelled Creatinine Cancelled Creat Clearance w eGFR Cancelled Random Glucose Cancelled Calcium Cancelled Total Bilirubin Cancelled AST Cancelled ALT Cancelled Alkaline Phosphatase Cancelled Creatine Kinase Cancelled Troponin I Cancelled Total Protein Cancelled Albumin Cancelled Urine Color Urine Appearance Urine pH Urine Protein Urine Glucose (UA) Urine Ketones Urine Blood Urine Nitrite Urine Bilirubin Urine Urobilinogen Ur Leukocyte Esterase 11/18/16 19:40 RBC 3.78 MCV 87.2 MCHC 32.2 RDW 15.0 MPV 9.9 Neutrophils % Y Lymphocytes % Y - RADIOLOGY Radiology Studies Ordered: Category Date Time Status CHEST X-RAY PORTABLE* [RAD] Stat Radiology 11/18/16 19:22 Ordered - Medications Given in the ED: ED Medications Discontinued Medications Generic Name Dose Route Start Last Admin Trade Name Freq PRN Reason Stop Dose Admin Magnesium Sulfate 2 gm 11/18/16 19:22 11/18/16 19:22 Magnesium Sulfate IVPB 11/18/16 19:23 2 gm ONCE ONE Administration Methylprednisolone Sodium Succinate 125 mg 11/18/16 19:22 11/18/16 19:22 Solu-Medrol - IVPB 11/18/16 19:23 125 mg ONCE ONE Administration *DC/Admit/Observation/Transfer Diagnosis at time of Disposition: Hypoxia, HIV (human immunodeficiency virus infection) Pneumonia Qualifiers: Pneumonia type: due to unspecified organism Laterality: left Lung location: upper lobe of lung Qualified Code(s): J18.1 - Lobar pneumonia, unspecified organism - Discharge Dispostion Condition at time of disposition: Fair Admit: Yes
[2016-11-18] MEDS ORDERED: OXYCODONE/APAP 5/325MG COMBO TABLET PO ONE (22:40)
[2016-11-18] MEDS ORDERED: OXYCODONE/APAP 5/325MG COMBO TABLET ONE (22:56)
[2016-11-19] MEDS ORDERED: AZITHROMYCIN IVPB 500 MG in DEXTROSE 5%-WATER - 250 ML IVPB ONE (01:11)
[2016-11-19] MEDS ORDERED: CEFTRIAXONE 2 GM in DEXTROSE 5%-WATER - 100 ML IVPB ONE (01:11)
--- NOTE | 2016-11-19 01:44 | PN ---
<Carlito Durantjeff - Last Filed: 11/19/16 01:44> Teaching Attending Note Name of Resident: Sharyn King ATTENDING PHYSICIAN STATEMENT I saw and evaluated the patient. I reviewed the resident's note and discussed the case with the resident. I agree with the resident's findings and plan as documented. SUBJECTIVE: OBJECTIVE: ASSESSMENT AND PLAN: <Travis Mejia - Last Filed: 11/19/16 03:09> Teaching Attending Note ATTENDING PHYSICIAN STATEMENT I saw and evaluated the patient. I reviewed the resident's note and discussed the case with the resident. I agree with the resident's findings and plan as documented. SUBJECTIVE: The patient is a 51 year old female patient with a significant past medical history of HIV, COPD, Asthma, Respiratory failure (with intubations) who presented to Emergency department BIB from [address] [place] [address] complaining of shortness of breath. The patient noted recent diagnosis of pneumonia and reported completing a cycle of Levaquin with Prednisone. OBJECTIVE: Last Vital Signs 3 Temp Pulse Resp BP Pulse Ox 98.6 F 100 H 18 116/87 98 11/18/16 18:36 11/18/16 19:41 11/18/16 18:36 11/18/16 18:36 11/18/16 19:41 Physical Exam: GEN: NAD HEENT: NCAT, PERRL CARD: RRR, S1 S2 RESP: (+) diminished breath sound, minor diffuse rhonchi, expiratory wheezing ABD: (+) NT, BWS x4. Mild abdominal distention EXT: - CCE Labs: CBCD 3 WBC 4.4 K/mm3 (4.0-10.0) 11/18/16 19:40 RBC 3.78 M/mm3 (3.60-5.2) 11/18/16 19:40 Hgb 10.6 GM/dL (10.7-15.3) L 11/18/16 19:40 Hct 33.0 % (32.4-45.2) 11/18/16 19:40 MCV 87.2 fl (80-96) 11/18/16 19:40 MCHC 32.2 g/dl (32.0-36.0) 11/18/16 19:40 RDW 15.0 % (11.6-15.6) 11/18/16 19:40 Plt Count 171 K/MM3 (134-434) D 11/18/16 19:40 MPV 9.9 fl (7.5-11.1) 11/18/16 19:40 CMP 3 Sodium 142 mmol/L (136-145) 11/18/16 20:46 Potassium 4.6 mmol/L (3.5-5.1) D 11/18/16 20:46 Chloride 107 mmol/L (98-107) 11/18/16 20:46 Carbon Dioxide 24 mmol/L (21-32) 11/18/16 20:46 Anion Gap 11 (8-16) 11/18/16 20:46 BUN 18 mg/dL (7-18) D 11/18/16 20:46 Creatinine 0.9 mg/dL (0.55-1.02) D 11/18/16 20:46 Creat Clearance w eGFR > 60 (>60) 11/18/16 20:46 Calcium 9.0 mg/dL (8.5-10.1) 11/18/16 20:46 Total Bilirubin 0.3 mg/dL (0.2-1.0) D 11/18/16 20:46 AST 13 U/L (15-37) L 11/18/16 20:46 ALT 18 U/L (12-78) 11/18/16 20:46 Alkaline Phosphatase 82 U/L (45-117) 11/18/16 20:46 Total Protein 7.6 g/dl (6.4-8.2) 11/18/16 20:46 Albumin 3.3 g/dl (3.4-5.0) L 11/18/16 20:46 Imaging: EXAM: CHEST X-RAY PORTABLE Difficulty breathing Portable chest x-ray AP sitting. Since prior chest x-ray dated 04/09/2016, there are mild bibasilar atelectatic changes. The heart remains within normal limits in size. Mediastinum and visualized osseous structures appear intact Impression Mild bibasal atelectatic changes without definite infiltrates. Follow -up is needed. Reported By: Juany Pleitez MD 11/18/16 [id number] EXAM: CT chest without contrast IMAGES: 376 DATE OF SERVICE: 2016-11-19 00:27: 13.0 REASON FOR EXAM: Difficulty breathing, rule out pneumonia COMPARISON: FINDINGS: There is a small region of airspace atelectasis/consolidation noted in the lingular segment of left upper lobe. There are regions of subsegmental discoid atelectasis noted in both lower lobes. 5 mm nodule is noted in the right upper lobe. There is no pneumothorax. There are no pleural effusions. The heart size is normal. There is no pericardial effusion. THIS DOCUMENT HAS BEEN ELECTRONICALLY SIGNED Vishnu Arango MD ASSESSMENT AND PLAN: Patient is a 51 year old female with a past medical history of HIV+, COPD, Asthma, Respiratory failure (with intubations) who presented to the Emergency Department via EMS for shortness of breath. 1. Acute exacerbation of asthma - s/p magnesium and Solumedrol ED - Continue with nebulizers PRN and standing - Check peak expiratory flow 2. Pneumonia- community acquired. Most likey resolved as patient has no fever and no leukocytosis will hold off on antibiotics for now. - Urine analysis - Culture 3. COPD - Continue with nebulizers (Advair, Singulair, and Spiriva) 4. HIV - Check CD4 - Continue heart medications - Continue home medications - Continue PCP PPX - Continue Dapsone 5. HTN - Continue home medications - If shortness of breath improves can continue with coreg 6. Xanthomas -Check lipid panel 7. Cocaine dependence - Dr. Acosta consult 8. Bipolar - Continue with depakote 9. DVT- low risk - Ambulate Admit to med surg. Documentation prepared by Travis Mejia, acting as medical staff director for Dr. Berry Durant MD.
[2016-11-19] MEDS ORDERED: ALBUTEROL SO4 0.083% IH SOL 2.5 MG/3 ML VIAL.NEB. NEB PRN (02:12)
[2016-11-19] MEDS ORDERED: CEFTRIAXONE 100 ML IVPB ONE (02:20)
[2016-11-19] MEDS ORDERED: AZITHROMYCIN IVPB 250 ML IVPB ONE (02:20)
[2016-11-19] MEDS ORDERED: GUAIFENESIN 200 MG PO PRN (02:29)
--- NOTE | 2016-11-19 02:53 | HP ---
CHIEF COMPLAINT: sob PCP: HISTORY OF PRESENT ILLNESS: 51 year old female with significant history of HIV, cocaine use, COPD, asthma, sent over form [facility] for shortness of breath and wheezing. Patient states she "knows herself" and needed to go to the hospital. She has been hospitalized for asthma/copd exacerbation multiple times over he last year and has been intubated 3xs. Latest hospitalization was around Nov 13 2016, as [facility] in [facility] for pneumonia and copd exacerbation. SHe was treated with 4days of IV levaquin and 3 days po. SHe was also sent home on steroids. Patient came to this area last week due problems with medications?, and to be admitted to [facility] to rehab. She last used cocaine, 1gm, sniffed, one week ago. Patient denies fever, chills, night sweats, sick contacts, recently travel outside [place]. She does admit to thick whit sputum production. ER course was notable for cxr/chest CT with small region of airspace atelectasis /consolidation in left upper lobe. NO white count, fever. O2 on 2L 97%. BP, RR, wnl. Tachycardia. She was given multiple duonebs and albuterol treatments. IV magnesium and solumedrol also given, with some improvement. She was given one time ceftriaxone/azithromycin. Recent Travel: no PAST MEDICAL HISTORY: COCAINE DEPENDENCE HAS POSITIVE PPD, HIV, GERD, HYPERTENSION, ASTHMA PAST SURGICAL HISTORY: LEEP Social History: Smoking:alis Alcohol:no Drugs: cocaine Family History: Allergies Penicillins Allergy (Severe, Verified 11/18/16 18:41) Hives HOME MEDICATIONS: Home Medications Medication Instructions Recorded Albuterol Sulfate Inhaler - 2 inh PO Q4H 02/01/15 [Ventolin HFA Inhaler -] Zolpidem Tartrate [Ambien] 10 mg PO HS 02/01/15 Fluticasone/Salmeterol [Advair 1 each IH BID 10/02/15 250-50 Diskus] Amlodipine Besylate [Norvasc -] 10 mg PO DAILY #30 tablet 10/06/15 Aspirin [White Aspirin] 81 mg PO DAILY #30 tab.chew 10/06/15 Carvedilol [Coreg -] 3.125 mg PO DAILY #30 tablet 10/06/15 Lisinopril [Prinivil] 20 mg PO DAILY #30 tablet 10/06/15 Dapsone - 100 mg PO DAILY 11/13/16 Divalproex Sodium [Depakote] 250 mg PO BID 11/13/16 Dolutegravir Sodium [Tivicay] 50 mg PO DAILY 11/13/16 Guaifenesin [Liquituss GG] 200 mg PO Q6H PRN 11/13/16 Montelukast Na [Singulair -] 10 mg PO DAILY 11/13/16 Multivitamin [Poly-Vitamin] 1 each PO DAILY 11/13/16 Nystatin/Triamcin 15 gm TP TID 11/13/16 [Nystatin-Triamcinolone Cream] Omeprazole 20 mg PO DAILY 11/13/16 Oxycodone HCl/Acetaminophen 1 each PO BID 11/13/16 [Oxycodone-Acetaminophen 10-325] Quetiapine Fumarate [Seroquel] 100 mg PO HS 11/13/16 Tiotropium [place] [Spiriva 2.5 mcg IH DAILY 11/13/16 Respimat] REVIEW OF SYSTEMS CONSTITUTIONAL: Absent: fever, chills, diaphoresis, generalized weakness, malaise, loss of appetite, weight change HEENT: Absent: rhinorrhea, nasal congestion, throat pain, throat swelling, difficulty swallowing, mouth swelling, ear pain, eye pain, visual changes CARDIOVASCULAR: Absent: chest pain, syncope, palpitations, irregular heart rate, lightheadedness , peripheral edema RESPIRATORY: Positive: sob, wheeze Absent: cough, dyspnea with exertion, orthopnea, stridor, hemoptysis GASTROINTESTINAL: Absent: abdominal pain, abdominal distension, nausea, vomiting, diarrhea, constipation, melena, hematochezia GENITOURINARY: Absent: dysuria, frequency, urgency, hesitancy, hematuria, flank pain, genital pain MUSCULOSKELETAL: Absent: myalgia, arthralgia, joint swelling, back pain, neck pain SKIN: Absent: rash, itching, pallor HEMATOLOGIC/IMMUNOLOGIC: Absent: easy bleeding, easy bruising, lymphadenopathy, frequent infections ENDOCRINE: Absent: unexplained weight gain, unexplained weight loss, heat intolerance, cold intolerance NEUROLOGIC: Absent: headache, focal weakness or paresthesias, dizziness, unsteady gait, seizure, mental status changes, bladder or bowel incontinence PSYCHIATRIC: Absent: anxiety, depression, suicidal or homicidal ideation, hallucinations. PHYSICAL EXAMINATION Vital Signs - 24 hr 11/18/16 11/18/16 18:36 19:41 Temperature 98.6 F Pulse Rate 97 H 100 H Respiratory 18 Rate Blood Pressure 116/87 O2 Sat by Pulse 98 98 Oximetry (%) GENERAL: Awake, alert, and fully oriented, in no acute distress. HEAD: Normal with no signs of trauma. EYES: xanthomas ; extraocular movements intact, sclera anicteric, conjunctiva clear. No lid lag. EARS, NOSE, THROAT: Ears normal, nares patent, oropharynx clear without exudates. Moist mucous membranes. NECK: Normal range of motion, supple without lymphadenopathy, JVD, or masses. LUNGS: decreased Breath sounds equal, clear to auscultation bilaterally. + expiratory wheezes, and no crackles. No accessory muscle use. HEART: tachycardic and rhythm, normal S1 and S2 without murmur, rub or gallop. ABDOMEN: Soft, nontender, +distended, normoactive bowel sounds, no guarding, no rebound, no masses. No hepatomegaly or splenomegaly. MUSCULOSKELETAL: Normal range of motion at all joints. No bony deformities or tenderness. No CVA tenderness. UPPER EXTREMITIES: 2+ pulses, warm, well-perfused. No cyanosis. No clubbing. No peripheral edema. LOWER EXTREMITIES: 2+ pulses, warm, well-perfused. No calf tenderness. No peripheral edema. NEUROLOGICAL: Cranial nerves II-XII intact. Normal speech. Normal gait. PSYCHIATRIC: Cooperative. Good eye contact. Appropriate mood and affect. SKIN: Warm, dry, normal turgor, no rashes or lesions noted, normal capillary refill. Laboratory Results - last 24 hr 11/18/16 11/18/16 11/18/16 19:40 19:40 19:40 WBC 4.4 RBC 3.78 Hgb 10.6 L Hct 33.0 MCV 87.2 MCHC 32.2 RDW 15.0 Plt Count 171 D MPV 9.9 Neutrophils % 74.0 Lymphocytes % 14.0 D Monocytes % 2.0 L Band Neutrophils 6.0 D Metamyelocytes 4 H D Platelet Estimate Adequate RBC Morphology Appears normal INR Cancelled PTT (Actin FS) Cancelled Puncture Site ABG pH ABG pCO2 at Pt Temp ABG pO2 at Pt Temp ABG HCO3 ABG O2 Sat (Measured) ABG O2 Content ABG Base Excess Collin Test Carboxyhemoglobin Methemoglobin O2 Delivery Device Oxygen Flow Rate Mechanical Rate PEEP Sodium Cancelled Potassium Cancelled Chloride Cancelled Carbon Dioxide Cancelled Anion Gap Cancelled BUN Cancelled Creatinine Cancelled Creat Clearance w eGFR Cancelled Random Glucose Cancelled Calcium Cancelled Total Bilirubin Cancelled AST Cancelled ALT Cancelled Alkaline Phosphatase Cancelled Creatine Kinase Cancelled Troponin I Cancelled Total Protein Cancelled Albumin Cancelled Urine Color Urine Appearance Urine pH Urine Protein Urine Glucose (UA) Urine Ketones Urine Blood Urine Nitrite Urine Bilirubin Urine Urobilinogen Ur Leukocyte Esterase 11/18/16 11/18/16 11/18/16 20:13 20:46 21:00 WBC RBC Hgb Hct MCV MCHC RDW Plt Count MPV Neutrophils % Lymphocytes % Monocytes % Band Neutrophils Metamyelocytes Platelet Estimate RBC Morphology INR PTT (Actin FS) Puncture Site Right radial ABG pH 7.45 ABG pCO2 at Pt Temp 32.3 L ABG pO2 at Pt Temp 120.0 H D ABG HCO3 22.1 ABG O2 Sat (Measured) 98.6 ABG O2 Content 14.4 L ABG Base Excess -0.8 Collin Test Positive Carboxyhemoglobin 1.2 Methemoglobin 3.6 H O2 Delivery Device Nasal cannula Oxygen Flow Rate 2 Mechanical Rate Na PEEP 0.0 Sodium 142 Potassium 4.6 D Chloride 107 Carbon Dioxide 24 Anion Gap 11 BUN 18 D Creatinine 0.9 D Creat Clearance w eGFR > 60 Random Glucose 120 H D Calcium 9.0 Total Bilirubin 0.3 D AST 13 L ALT 18 Alkaline Phosphatase 82 Creatine Kinase 48 Troponin I < 0.02 Total Protein 7.6 Albumin 3.3 L Urine Color Straw Urine Appearance Clear Urine pH 8.0 Urine Protein Negative Urine Glucose (UA) Negative Urine Ketones Negative Urine Blood Negative Urine Nitrite Negative Urine Bilirubin Negative Urine Urobilinogen Negative Ur Leukocyte Esterase Negative ASSESSMENT/PLAN: 51 year old female with COPD, asthma, HTN, HIV, cocaine dependance, presents with sob and wheezing. SHe was recently admitted to another hospital for PNA and treated with 10 course of antibiotics. Patient admitted for acute asthma exacerbation, r/o pna. Less likely to be pna, no white count, fever, shills, questionable imaging, although this could be due to lag of study. #acute asthma exacerbation: -albuterol neb qid/ prn -IV solumedrol 60mg bid -monitor peak flow for management #COPD: -cont spiriva -cont advair -keep O2 sat 88-92% #abdominal distention: -bowel sounds present -abdominal xray #HTN: -lisinopril 20mg po daily -norvasc 10mg po daily #HIV: -cont home antiviral meds -cd4 count -viral load -cont PCP prophylaxis with dapsone #r/o PNA: -monitor for worsening sign; fever, chills, cough with sputm; -f/u blood/sputum culture -f/u with cxr -will hold off on antibiotics ofr now, she already completed full course last week #Oral thrush: -resolving, cont nystatin #xanthomos: -check cholesterol #bipolar: -cont depakote 250mg po FEN: Fluids: po Electrolytes: wnl Diet: low NA VTE prophylaxis: heparin sq Disposition: med surg; Problem List - Problem (1) Hypoxia Code(s): R09.02 - HYPOXEMIA (2) Asthma Code(s): J45.909 - UNSPECIFIED ASTHMA, UNCOMPLICATED Qualifiers: Asthma severity: moderate persistent Asthma complication type: with status asthmaticus Qualified Code(s): J45.42 - Moderate persistent asthma with status asthmaticus (3) COPD (chronic obstructive pulmonary disease) Code(s): J44.9 - CHRONIC OBSTRUCTIVE PULMONARY DISEASE, UNSPECIFIED Qualifiers : COPD type: emphysema Emphysema type: other Qualified Code(s): J43.8 - Other emphysema (4) Essential hypertension Code(s): I10 - ESSENTIAL (PRIMARY) HYPERTENSION (5) GERD (gastroesophageal reflux disease) Code(s): K21.9 - GASTRO-ESOPHAGEAL REFLUX DISEASE WITHOUT ESOPHAGITIS Qualifiers: Esophagitis presence: without esophagitis Qualified Code(s): K21.9 - Gastro-esophageal reflux disease without esophagitis (6) HIV (human immunodeficiency virus infection) Code(s): Z21 - ASYMPTOMATIC HUMAN IMMUNODEFICIENCY VIRUS INFECTION STATUS (7) Hypertension Code(s): I10 - ESSENTIAL (PRIMARY) HYPERTENSION (8) Positive PPD, treated Code(s): R76.11 - NONSPECIFIC REACTION TO SKIN TEST W/O ACTIVE TUBERCULOSIS (9) Asthma exacerbation Code(s): J45.901 - UNSPECIFIED ASTHMA WITH (ACUTE) EXACERBATION (10) Drug-induced mood disorder Code(s): F19.94 - OTH PSYCHOACTIVE SUBSTANCE USE, UNSP W MOOD DISORDER (11) Lung nodule Code(s): R91.1 - SOLITARY PULMONARY NODULE Visit type - Emergency Visit Emergency Visit: Yes Care time: The patient presented to the Emergency Department on the above date and was hospitalized for further evaluation of their emergent condition. - New Patient This patient is new to me today: Yes Date on this admission: 11/19/16 - Critical Care Critical Care patient: No
[2016-11-19] MEDS ORDERED: diphenhydrAMINE HCL 25 MG CAPSULE (FP) PO ONE (04:24)
[2016-11-19 04:41] VITALS: BMI 25.9
[2016-11-19] MEDS: ALBUTEROL SO4 0.083% IH SOL 2.5 MG/3 ML VIAL.NEB. NEB SCH ×2 (05:20→11:25)
[2016-11-19] MEDS ORDERED: NYSTATIN/TRIAMCINOLONE TOPICAL CREAM 15 GM TUBE TP SCH (06:00)
[2016-11-19 07:43] VITALS: BP 114/83; TEMP 98.4
[2016-11-19] MEDS ORDERED: PATIENT'S OWN MEDICATION (NON-FORMULARY) (Omeprazole 20 MG) PO SCH (10:00)
[2016-11-19] MEDS ORDERED: DAPSONE 100 MG TABLET PO SCH (10:00)
[2016-11-19] MEDS ORDERED: DOLUTEGRAVIR SODIUM 50 MG TABLET PO SCH (10:00)
[2016-11-19] MEDS ORDERED: BUDESONIDE/FORMETEROL FUMARATE 80/4.5 mcg INHALER IH SCH (10:00)
[2016-11-19] MEDS ORDERED: LISINOPRIL 20 MG TABLET (FP) PO SCH (10:00)
[2016-11-19] MEDS ORDERED: methylPREDNISolone NA SUCC 40 MG/1 ML VIAL IVPB SCH ×2 (10:00)
[2016-11-19] MEDS ORDERED: amLODIPine BESYLATE 10 MG TABLET (FP) PO SCH (10:00)
[2016-11-19] MEDS ORDERED: MONTELUKAST NA 10 MG TABLET PO SCH (10:00)
[2016-11-19] MEDS ORDERED: DIVALPROEX SODIUM 250 MG TABLET E.C. (FP) PO SCH (10:00)
[2016-11-19] MEDS ORDERED: ASPIRIN 81 MG CHEWABLE TABLETS PO SCH (10:00)
[2016-11-19] MEDS ORDERED: MULTIVITAMINS (DAILY MVI) TABLET (FP) PO SCH (10:00)
[2016-11-19] MEDS ORDERED: TIOTROPIUM BROMIDE 2.5 MCG IH SCH (10:00)
[2016-11-19] MEDS ORDERED: ACETAMINOPHEN 325 MG TABLET (FP) PO ONE (10:00)
[2016-11-19 11:30] VITALS: PULSE 120
[2016-11-19] MEDS: HEPARIN NA (PORCINE) 5,000 UNITS/ML 1ML VIAL SQ SCH ×2 (11:59→12:36)
--- NOTE | 2016-11-19 12:35 | DS ---
Physical Exam: SUBJECTIVE: Patient seen and examined seated on edge of bed. Ambulating around the room, chatting with roommate. OBJECTIVE: Vital Signs Period Temp Pulse Resp BP Sys/Blount Pulse Ox Last 24 Hr 97.7 F-98.4 F 81-120 18-18 114-143/67-83 93-98 PHYSICAL EXAM GENERAL: The patient is awake, alert, and fully oriented, in no acute distress. HEAD: Normal with no signs of trauma. EYES: PERRL, extraocular movements intact, sclera anicteric, conjunctiva clear. LUNGS: Breath sounds equal, clear to auscultation bilaterally, no wheezes, no crackles, no accessory muscle use. Speaks in complete sentences and at length. Able to raise voice, loudly HEART: Regular rate and rhythm, S1, S2 without murmur, rub or gallop. ABDOMEN: Soft, nontender, nondistended, normoactive bowel sounds, no guarding, no rebound, no hepatosplenomegaly, no masses. EXTREMITIES: 2+ pulses, warm, well-perfused, no edema. NEUROLOGICAL: Cranial nerves II through XII grossly intact. Normal speech, steady gait. LABS CBCD WBC 4.4 K/mm3 (4.0-10.0) 11/18/16 19:40 RBC 3.78 M/mm3 (3.60-5.2) 11/18/16 19:40 Hgb 10.6 GM/dL (10.7-15.3) L 11/18/16 19:40 Hct 33.0 % (32.4-45.2) 11/18/16 19:40 MCV 87.2 fl (80-96) 11/18/16 19:40 MCHC 32.2 g/dl (32.0-36.0) 11/18/16 19:40 RDW 15.0 % (11.6-15.6) 11/18/16 19:40 Plt Count 171 K/MM3 (134-434) D 11/18/16 19:40 MPV 9.9 fl (7.5-11.1) 11/18/16 19:40 CMP Sodium 142 mmol/L (136-145) 11/18/16 20:46 Potassium 4.6 mmol/L (3.5-5.1) D 11/18/16 20:46 Chloride 107 mmol/L (98-107) 11/18/16 20:46 Carbon Dioxide 24 mmol/L (21-32) 11/18/16 20:46 Anion Gap 11 (8-16) 11/18/16 20:46 BUN 18 mg/dL (7-18) D 11/18/16 20:46 Creatinine 0.9 mg/dL (0.55-1.02) D 11/18/16 20:46 Creat Clearance w eGFR > 60 (>60) 11/18/16 20:46 Calcium 9.0 mg/dL (8.5-10.1) 11/18/16 20:46 Total Bilirubin 0.3 mg/dL (0.2-1.0) D 11/18/16 20:46 AST 13 U/L (15-37) L 11/18/16 20:46 ALT 18 U/L (12-78) 11/18/16 20:46 Alkaline Phosphatase 82 U/L (45-117) 11/18/16 20:46 Total Protein 7.6 g/dl (6.4-8.2) 11/18/16 20:46 Albumin 3.3 g/dl (3.4-5.0) L 11/18/16 20:46 HOSPITAL COURSE: Date of Admission:11/19/16 Date of Discharge: 11/19/16 51 year old female with significant history of HIV, alcohol and cocaine abuse, COPD, asthma, sent from [facility] for shortness for shortness of breath and wheezing. Patient states she "knows herself" and needed to go to the hospital. She has been hospitalized for asthma/copd exacerbation multiple times over he last year and has been intubated 3xs. Latest hospitalization was around Nov 13 2016, as [facility] in [facility] for pneumonia and copd exacerbation. She was treated with 4 days of IV levaquin and 3 days po. She was also sent home on steroids. Patient came to [place] and signed herself into [facility] rehab. She last used cocaine, 1gm, sniffed, one week ago. ER course was notable for cxr/chest CT with small region of airspace atelectasis /consolidation in left upper lobe. No leukocytosis, no fever. O2 on 2L 97%. BP, RR, wnl. Tachycardia. She was given multiple duonebs and albuterol treatments. IV magnesium and solumedrol also given, with some improvement. She was given one time ceftriaxone/azithromycin. This morning patient was comfortable on room air. Walked with respiratory therapy and maintained O2 sat of 95%. On physical exam lungs were clear, there was no wheezing. Patient discharged with Medrol dose isidro. She did not wish to return to [facility]. She advised this provider she had all her home meds, including her HIV medication, at home in the [place] and readily available to her. Minutes to complete discharge: 35 Discharge Summary Reason For Visit: PNEUMONIA HYPOXIA HIV Current Active Problems Hypoxia (Acute) Lung nodule (Acute) Pneumonia (Acute) HIV (human immunodeficiency virus infection) (Chronic) Condition: Improved - Instructions Disposition: HOME - Home Medications Comprehensive Discharge Medication List: Ambulatory Orders Albuterol Sulfate Inhaler - [Ventolin HFA Inhaler -] 2 inh PO Q4H 02/01/15 Fluticasone/Salmeterol [Advair 250-50 Diskus] 1 each IH BID 10/02/15 Amlodipine Besylate [Norvasc -] 10 mg PO DAILY #30 tablet 10/06/15 Aspirin [[place] Aspirin] 81 mg PO DAILY #30 tab.chew 10/06/15 Carvedilol [Coreg -] 3.125 mg PO DAILY #30 tablet 10/06/15 Lisinopril [Prinivil] 20 mg PO DAILY #30 tablet 10/06/15 Dapsone - 100 mg PO DAILY 11/13/16 Divalproex Sodium [Depakote] 250 mg PO BID 11/13/16 Dolutegravir Sodium [Tivicay] 50 mg PO DAILY 11/13/16 Guaifenesin [Liquituss GG] 200 mg PO Q6H PRN 11/13/16 Montelukast Na [Singulair -] 10 mg PO DAILY 11/13/16 Multivitamin [Poly-Vitamin] 1 each PO DAILY 11/13/16 Nystatin/Triamcin [Nystatin-Triamcinolone Cream] 15 gm TP TID 11/13/16 Omeprazole 20 mg PO DAILY 11/13/16 Oxycodone HCl/Acetaminophen [Oxycodone-Acetaminophen 10-325] 1 each PO BID 11/13 Quetiapine Fumarate [Seroquel] 100 mg PO HS 11/13/16 Tiotropium [place] [Spiriva Respimat] 2.5 mcg IH DAILY 11/13/16 Methylprednisolone [Medrol Dose Isidro] 4 mg PO ASDIR #21 tablet 11/19/16 This patient is new to me today: Yes Date on this admission: 11/19/16 Emergency Visit: Yes ED Registration Date: 11/19/16 Care time: The patient presented to the Emergency Department on the above date and was hospitalized for further evaluation of their emergent condition. Critical Care patient: No - Discharge Referral Referred to [facility] Med P.C.: No
[2016-11-20 14:17] LABS: % CD 3 POS. LYMPH. 66.8 % (57.5-86.2); % CD 4 POS LYM 8.4 % (30.8-58.5); %CD3+CD4+CD8+ 0.7 % (Not Estab.); %CD3+CD4+CD8- 7.6 % (Not Estab.); %CD3+CD4-CD8+ 54.4 % (Not Estab.); ABSO. CD 3 468 /uL (622-2402); ABSOLUTE CD 4 HELPER 59 /uL (359-1519); AbsCD3+CD4+CD8+ 5 /uL (Not Estab.); AbsCD3+CD4-CD8+ 381 /uL (Not Estab.); AbsCD3+CD4-CD8- 28 /uL (Not Estab.); CD4/CD8 0.15 (0.92-3.72); CD4/CD8 NYSDOH RATIO 0.14 (Not Estab.); WHITE BLOOD COUNT 6.3 x10E3/uL (3.4-10.8)
== END 2016-11-19 15:18 | disposition home or self-care (01) | DRG 139 ==
LOC: JER 18:24 → JERBED 11-19 01:36 → UNDOADMOB 11-19 01:56 → JERBED 11-19 01:56 → OBSVTOIN 11-19 02:12 → J5S 11-19 04:18
PROVIDERS: ADMIT Internal Medicine; ATTEND Nurse Practitioner Acute Care
DX: J18.9 Pneumonia, unspecified organism (principal); J45.901 Unspecified asthma with (acute) exacerbation; J44.9 Chronic obstructive pulmonary disease, unspecified; K21.9 Gastro-esophageal reflux disease without esophagitis; I10 Essential (primary) hypertension; F14.20 Cocaine dependence, uncomplicated; J98.11 Atelectasis; R14.0 Abdominal distension (gaseous); B37.0 Candidal stomatitis; E75.5 Other lipid storage disorders; F31.9 Bipolar disorder, unspecified; F10.10 Alcohol abuse, uncomplicated; R09.02 Hypoxemia; R76.11 Nonspecific reaction to tuberculin skin test without active tuberculosis; Z88.0 Allergy status to penicillin; Z21 Asymptomatic human immunodeficiency virus [HIV] infection status
CPT/HCPCS: 36415; 36600; 71010-TC; 71250-TC; 74020-TC; 80053; 81003; 82375; 82550; 82803; 83050; 84484; 85025; 86359; 86360; 87040; 94640; 94761; 99284-25; G0378; J1644